=== PATIENT | male | born 1955 | race Caucasian/White ===

== ENCOUNTER 2018-11-06 03:21 | Inpatient (IN) | payer MEDICARE, MEDICAID ==
[~2018-11-06] VITALS: Ht 167.6 cm; Wt 79.0 kg
[~2018-11-06 03:21] MED LIST: APIX2.5T PO; ATOR20TA86 PO; DOCU250C91 PO; FOLI1CAP2 PO; INSU100I26 SQ; PANT20TA PO; PRED5 PO; SOTA120T PO; TACR1 PO; TAMS0.4C32 PO
[2018-11-06] MEDS ORDERED: LORazepam 2 MG/ML VIAL IVP ONE ×2 (03:30→03:45)
[2018-11-06] MEDS ORDERED: INSULIN REGULAR, HUMAN 100 UNITS/ML IVP ONE (03:45)
[2018-11-06 03:50] LABS: GLUCOSE,POINT OF CARE 565 MG/DL (70-110)
[2018-11-06 03:53] LABS: ABG A-A DIFF O2 285.9 mmHg (10-20.0); ABG CARBOXYHEMOGLOBIN 0.3 % (0.0-1.5); ABG METHEMOGLOBIN 0.4 % (0.0-1.5); ABG OXYGEN SATURATION 99.4 % (95.0-98.0); ABG OXYHEMOGLOBIN 98.7 % (94.0-100.0); ABG PCO2 63 mmHg (35-45); PO2, ARTERIAL BG 364.2 mmHg (79.0-87.0); SOURCE, BLOOD GAS ARTERIAL; TEMPERATURE, FAHRENHEIT, BG 98.6 FAHREN (96.0-98.6)
[2018-11-06 03:54] LABS: ABG HCO3 6.4 mmol/L (22.0-26.0); ABG PH 6.772 (7.35-7.450); O2 DEVICE,BLOOD GAS NON REBREATHER (ROOM AIR); SITE, BLOOD GAS RT RADIAL
[2018-11-06] MEDS ORDERED: LABETALOL HCL 5 MG/ML 20 ML VIAL IVP ONE (04:00)
[2018-11-06] MEDS ORDERED: RAPID SEQUENCE KIT [RSI] 1 EACH KIT ONE (04:01)
[2018-11-06] MEDS ORDERED: ROCURONIUM BROMIDE 10 MG/ML 5 ML VIAL ONE (04:01)
[2018-11-06 04:12] LABS: BASOPHILS % (AUTO) 0.6 % (0.0-2.0); EOSINOPHILS % (AUTO) 0.9 % (1.0-6.0); HEMATOCRIT 40.8 % (41-53); HEMOGLOBIN 12.1 g/dL (13.5-17.5); LYMPHOCYTES # (AUTO) 6.7 K/uL (1.0-4.8); LYMPHOCYTES % (AUTO) 41.7 % (22.0-44.0); MEAN CORPUSCULAR HEMOGLOBIN 27.9 pg (26.0-34.0); MEAN CORPUSCULAR HGB CONC 29.8 G/dL (31.0-37.0); MEAN CORPUSCULAR VOLUME 94 fL (80-100); MONOCYTES # (AUTO) 1.2 K/uL (0.1-1.0); MONOCYTES % (AUTO) 7.2 % (2.0-9.0); NEUTROPHILS # (AUTO) 7.9 K/uL (1.8-7.7); NEUTROPHILS % (AUTO) 49.6 % (40.0-70.0); PLATELET COUNT (AUTO) 178 K/uL (150-450); RED BLOOD CELL COUNT(AUTO) 4.35 MIL/uL (4.50-5.90)
[2018-11-06 04:19] LABS: PROTHROMBIN TIME 10.8 SEC (9.4-11.6)
[2018-11-06] MEDS ORDERED: PROPOFOL 1000 MG/ISO-OSM 100 ML IV ONE ×2 (04:35→12:25)
[2018-11-06] MEDS ORDERED: PROPOFOL 1000 MG/ISO-OSM 100 ML IV PRN (04:37)
[2018-11-06 04:45] LABS: BILIRUBIN,TOTAL 0.2 mg/dL (0.1-1.0); CALCIUM, TOTAL 9.3 mg/dL (8.8-10.5); CREATININE 4.11 mg/dL (0.60-1.30); MAGNESIUM 2.5 mg/dL (1.80-2.40); POTASSIUM 4.6 mmol/L (3.5-5.1); TOTAL PROTEIN, SERUM 5.6 g/dL (6.4-8.2)
[2018-11-06] MEDS ORDERED: FURO20 PO (04:45)
[2018-11-06] MEDS ORDERED: SIMV-260 PO (04:45)
[2018-11-06] MEDS ORDERED: ESOM20CA31 PO (04:45)
[2018-11-06] MEDS ORDERED: METO50 PO (04:45)
[2018-11-06] MEDS ORDERED: INSU100V SQ (04:45)
[2018-11-06] MEDS ORDERED: LOSA50TA64 PO (04:45)
[2018-11-06] MEDS ORDERED: MYCO360T3 PO (04:45)
[2018-11-06] MEDS ORDERED: OMEP20 PO (04:45)
[2018-11-06 04:53] LABS: LACTIC ACID 10.9 mmol/L (0.4-2.0)
[2018-11-06] MEDS ORDERED: PIPERACILLIN/TAZO 3.375 GM/D5W 50 ML IV ONE (05:00)
[2018-11-06] MEDS ORDERED: SODIUM CHLORIDE 0.9% 1,000 ML IV ONE (05:00)
[2018-11-06] MEDS ORDERED: INSULIN REGULAR, HUMAN 100 UNITS in SODIUM CHLORIDE 0.9% 99 ML IV PRN ×4 (05:15→05:23)
[2018-11-06] MEDS ORDERED: POTASSIUM CHL 20 MEQ/0.45% NS 1,000 ML IV PRN (05:23)
[2018-11-06] MEDS ORDERED: POTASSIUM CHLORIDE 40 MEQ in SODIUM CHLORIDE 0.45% 1,000 ML IV PRN (05:23)
[2018-11-06] MEDS ORDERED: SODIUM CHLORIDE 0.9% 1,000 ML IV SCH (05:23)
[2018-11-06] MEDS ORDERED: SODIUM CHLORIDE 0.45% 1,000 ML IV PRN (05:23)
[2018-11-06] MEDS ORDERED: DEXTROSE 5%-0.45% SODIUM CHL 1,000 ML IV PRN (05:23)
[2018-11-06 05:30] LABS: GLUCOSE,POINT OF CARE 457 MG/DL (70-110)
[2018-11-06] MEDS ORDERED: DEXTROSE 50%-WATER 25 GM/50 ML SYRINGE IVP PRN ×2 (05:30→10:15)
[2018-11-06] MEDS ORDERED: INSULIN REGULAR, HUMAN 100 UNITS/ML IVP PRN (05:30)
[2018-11-06 05:33] LABS: BILIRUBIN,URINE NEGATIVE (NEGATIVE); GLUCOSE, URINE (UA) >=1000 mg/dL (NEGATIVE); KETONES,URINE NEGATIVE (NEGATIVE); LEUKOCYTE ESTERASE ,URINE NEGATIVE (NEGATIVE); NITRATE,URINE NEGATIVE (NEGATIVE); PH,URINE 5.5 (5.0-8.0); PROTEIN,URINE SEE CONFIRM (NEGATIVE); UROBILINOGEN,URINE 0.2 mg/dL (<=1.0)
[2018-11-06 05:38] LABS: AMPHET/METH SCREEN,URINE NEGATIVE (NEGATIVE); BARBITURATE SCREEN, URINE NEGATIVE (NEGATIVE); BENZODIAZEPINES SCREEN,URINE NEGATIVE (NEGATIVE); CANNABINOID SCREEN,URINE NEGATIVE (NEGATIVE); COCAINE SCREEN,URINE NEGATIVE (NEGATIVE); METHADONE SCREEN, URINE NEGATIVE (NEGATIVE); OPIATE SCREEN,URINE NEGATIVE (NEGATIVE)
[2018-11-06 05:40] LABS: APPEARANCE,URINE SLIGHTLY CLOUDY (CLEAR); OCCULT BLOOD,URINE MODERATE (NEGATIVE)
[2018-11-06 05:41] LABS: BACTERIA,URINE Moderate /HPF (None Seen); SULFOSALICYLIC ACID,URINE 3+ (Negative); WBC,URINE 0-2 /HPF (0-5)
[2018-11-06 05:44] LABS: PHENCYCLIDINE SCREEN,URINE NEGATIVE (NEGATIVE)
[2018-11-06 05:47] LABS: ABG A-A DIFF O2 615.2 mmHg (10-20.0); ABG BASE EXCESS -12.4 mmol/L (-2.0-3.0); ABG CARBOXYHEMOGLOBIN 0.3 % (0.0-1.5); ABG HCO3 15.1 mmol/L (22.0-26.0); ABG METHEMOGLOBIN 0.3 % (0.0-1.5); ABG OXYGEN CONTENT 13.8 mL/dL (15.0-23.0); ABG OXYHEMOGLOBIN 84.3 % (94.0-100.0); ABG PCO2 40 mmHg (35-45); ABG TOTAL HEMOGLOBIN 11.6 G/dL (12.0-18.0); PO2, ARTERIAL BG 57.8 mmHg (79.0-87.0); SOURCE, BLOOD GAS ARTERIAL; TEMPERATURE, FAHRENHEIT, BG 98.6 FAHREN (96.0-98.6)
[2018-11-06 05:49] LABS: ABG OXYGEN SATURATION 84.8 % (95.0-98.0); ABG PH 7.207 (7.35-7.450); O2 DEVICE,BLOOD GAS VENTILATOR (ROOM AIR); PEEP,BG 5 cm H2O; SITE, BLOOD GAS RT RADIAL; VT, ABG 500 ml
[2018-11-06 06:59] LABS: GLUCOSE,POINT OF CARE 370 MG/DL (70-110)
[2018-11-06 07:00] LABS: CALCIUM, TOTAL 8.5 mg/dL (8.8-10.5); CREATININE 3.83 mg/dL (0.60-1.30); POTASSIUM 5.1 mmol/L (3.5-5.1)
[2018-11-06] MEDS ORDERED: ACETAMINOPHEN 325 MG TABLET PO PRN ×2 (08:00→10:15)
[2018-11-06] MEDS ORDERED: 0.9% SODIUM CHLORIDE 10 ML SYRINGE IVP PRN (08:00)
[2018-11-06 08:04] LABS: GLUCOSE,POINT OF CARE 298 MG/DL (70-110)
[2018-11-06 09:20] LABS: ABG A-A DIFF O2 203.5 mmHg (10-20.0); ABG BASE EXCESS -9.5 mmol/L (-2.0-3.0); ABG CARBOXYHEMOGLOBIN 0.2 % (0.0-1.5); ABG HCO3 17.6 mmol/L (22.0-26.0); ABG METHEMOGLOBIN 0.3 % (0.0-1.5); ABG OXYGEN CONTENT 15.8 mL/dL (15.0-23.0); ABG OXYGEN SATURATION 99.4 % (95.0-98.0); ABG OXYHEMOGLOBIN 98.9 % (94.0-100.0); ABG PCO2 29 mmHg (35-45); ABG PH 7.356 (7.35-7.450); ABG TOTAL HEMOGLOBIN 10.4 G/dL (12.0-18.0); O2 DEVICE,BLOOD GAS VENTILATOR (ROOM AIR); PO2, ARTERIAL BG 483.4 mmHg (79.0-87.0); SITE, BLOOD GAS RT RADIAL; SOURCE, BLOOD GAS ARTERIAL; TEMPERATURE, FAHRENHEIT, BG 96.2 FAHREN (96.0-98.6)
[2018-11-06 09:21] LABS: PEEP,BG 5 cm H2O; VT, ABG 500 ml
[2018-11-06] MEDS ORDERED: SODIUM CHLORIDE 0.9% 250 ML IV ONE (09:55)
[2018-11-06] MEDS ORDERED: LORazepam 2 MG/ML VIAL IM PRN (10:15)
[2018-11-06] MEDS ORDERED: ONDANSETRON HCL 4 MG/2 ML VIAL IVP PRN (10:15)
[2018-11-06] MEDS ORDERED: ZOLPIDEM TARTRATE 5 MG TABLET PO PRN (10:15)
[2018-11-06] MEDS ORDERED: MORPHINE SULFATE 4 MG/ML SYRINGE IVP PRN (10:15)
[2018-11-06] MEDS ORDERED: MAGNESIUM HYDROXIDE SUSPENSION 30 ML UDCUP PO PRN (10:15)
[2018-11-06] MEDS ORDERED: BISACODYL 10 MG RECTAL RECTAL SUPPOSITORY PR PRN (10:15)
[2018-11-06] MEDS: LevETIRAcetam 500 MG in DEXTROSE 5%-WATER 100 ML IV SCH ×2 (11:25→23:00)
[2018-11-06 11:52] LABS: CALCIUM, TOTAL 8.4 mg/dL (8.8-10.5); CREATININE 3.65 mg/dL (0.60-1.30); MAGNESIUM 2.6 mg/dL (1.80-2.40); PHOSPHORUS 4.6 mg/dL (2.5-4.9); POTASSIUM 4.3 mmol/L (3.5-5.1)
[2018-11-06 12:00] VITALS: BP 141/86
[2018-11-06] MEDS: PredniSONE 5 MG TABLET PO SCH (13:52)
[2018-11-06] MEDS: MYCOPHENOLATE SODIUM 180 MG DR TABLET PO SCH ×2 (13:52→20:59)
[2018-11-06] MEDS: SODIUM CHLORIDE 0.45% 1,000 ML IV SCH ×2 (13:53→20:59)
[2018-11-06 15:09] LABS: GLUCOSE,POINT OF CARE 163 MG/DL (70-110)
[2018-11-06 15:09] LABS: GLUCOSE,POINT OF CARE 123 MG/DL (70-110)
[2018-11-06 15:19] LABS: GLUCOSE,POINT OF CARE 144 MG/DL (70-110)
[2018-11-06 16:00] VITALS: BP 154/82
[2018-11-06] MEDS ORDERED: ROCURONIUM BROMIDE 10 MG/ML 5 ML VIAL IV ONE (16:07)
[2018-11-06] MEDS ORDERED: ETOMIDATE 2 MG/ML 10 ML VIAL IV ONE (16:07)
[2018-11-06] MEDS: HEPARIN SODIUM,PORCINE 5,000 UNITS/ML VIAL SQ SCH ×2 (16:14→23:05)
[2018-11-06 18:34] LABS: GLUCOSE,POINT OF CARE 119 MG/DL (70-110)
[2018-11-06] MEDS: PROPOFOL 1000 MG/ISO-OSM 100 ML IV PRN ×2 (18:43→23:06)
[2018-11-06] MEDS: HydrALAZINE HCL 20 MG/ML VIAL IVP PRN (18:57)
[2018-11-06 19:12] LABS: APPEARANCE,URINE TURBID (CLEAR); BILIRUBIN,URINE NEGATIVE (NEGATIVE); CREATININE,URINE RANDOM 157.6 mg/dL (30.0-125.0); GLUCOSE, URINE (UA) 500 mg/dL (NEGATIVE); KETONES,URINE NEGATIVE (NEGATIVE); LEUKOCYTE ESTERASE ,URINE NEGATIVE (NEGATIVE); NITRATE,URINE NEGATIVE (NEGATIVE); OCCULT BLOOD,URINE LARGE (NEGATIVE); PROTEIN,URINE SEE CONFIRM (NEGATIVE); SODIUM,URINE RANDOM 14 mmol/l (20-110); UREA NITROGEN,URINE RANDOM 501 mg/dL (350-1000); UROBILINOGEN,URINE 0.2 mg/dL (<=1.0)
[2018-11-06 19:25] LABS: BACTERIA,URINE Few /HPF (None Seen); SQUAMOUS EPITHELIAL CELL,UR Few /LPF (None Seen); WBC,URINE 0-2 /HPF (0-5)
[2018-11-06 19:26] LABS: AMORPHOUS SEDIMENT,UR Few /LPF (None Seen)
[2018-11-06 20:00] VITALS: BP 172/84
[2018-11-06] MEDS: DOCUSATE SODIUM 100 MG CAPSULE PO SCH (20:58)
[2018-11-06] MEDS: TAMSULOSIN HCL 0.4 MG CAPSULE PO SCH (20:58)
[2018-11-06] MEDS: INSULIN LISPRO 100 UNITS/ML SQ PRN (23:56)
[2018-11-07] VITALS: BP 154/72
[2018-11-07 00:09] LABS: GLUCOSE,POINT OF CARE 238 MG/DL (70-110)
[2018-11-07] MEDS: HydrALAZINE HCL 20 MG/ML VIAL IVP PRN ×3 (02:03→19:51)
[2018-11-07] MEDS: SODIUM CHLORIDE 0.45% 1,000 ML IV SCH ×2 (03:58→10:20)
[2018-11-07] MEDS: PROPOFOL 1000 MG/ISO-OSM 100 ML IV PRN (03:58)
[2018-11-07 04:00] VITALS: BP 150/73
[2018-11-07 05:14] LABS: GLUCOSE,POINT OF CARE 194 MG/DL (70-110)
[2018-11-07 05:33] LABS: BASOPHILS % (AUTO) 0.4 % (0.0-2.0); EOSINOPHILS % (AUTO) 0.3 % (1.0-6.0); HEMATOCRIT 31.1 % (41-53); HEMOGLOBIN 10.3 g/dL (13.5-17.5); LYMPHOCYTES # (AUTO) 1.1 K/uL (1.0-4.8); LYMPHOCYTES % (AUTO) 12.2 % (22.0-44.0); MEAN CORPUSCULAR HEMOGLOBIN 28.2 pg (26.0-34.0); MEAN CORPUSCULAR HGB CONC 33.1 G/dL (31.0-37.0); MEAN CORPUSCULAR VOLUME 85 fL (80-100); MONOCYTES # (AUTO) 0.5 K/uL (0.1-1.0); NEUTROPHILS # (AUTO) 7.3 K/uL (1.8-7.7); NEUTROPHILS % (AUTO) 81.1 % (40.0-70.0); PLATELET COUNT (AUTO) 127 K/uL (150-450); RED BLOOD CELL COUNT(AUTO) 3.65 MIL/uL (4.50-5.90); RED CELL DISTRIBUTION WIDTH 15.7 % (11.5-14.5)
[2018-11-07] MEDS: INSULIN LISPRO 100 UNITS/ML SQ PRN ×4 (06:49→23:59)
[2018-11-07 07:44] LABS: PHOSPHORUS 5.2 mg/dL (2.5-4.9)
[2018-11-07 08:00] VITALS: BP 136/58
[2018-11-07 08:07] LABS: CREATININE 3.75 mg/dL (0.60-1.30); MAGNESIUM 2.3 mg/dL (1.80-2.40); POTASSIUM 4.8 mmol/L (3.5-5.1)
[2018-11-07] MEDS ORDERED: LORazepam 2 MG/ML VIAL IVP PRN (08:30)
[2018-11-07] MEDS ORDERED: LOSARTAN POTASSIUM 50 MG TABLET PO SCH (09:00)
[2018-11-07 10:13] LABS: ABG BASE EXCESS -13.6 mmol/L (-2.0-3.0); ABG CARBOXYHEMOGLOBIN 0.3 % (0.0-1.5); ABG METHEMOGLOBIN 0.3 % (0.0-1.5); ABG OXYGEN CONTENT 15.3 mL/dL (15.0-23.0); ABG OXYGEN SATURATION 98.7 % (95.0-98.0); ABG OXYHEMOGLOBIN 98.1 % (94.0-100.0); ABG PCO2 25 mmHg (35-45); ABG PH 7.318 (7.35-7.450); ABG TOTAL HEMOGLOBIN 10.9 G/dL (12.0-18.0); PO2, ARTERIAL BG 147.7 mmHg (79.0-87.0); SOURCE, BLOOD GAS ARTERIAL; TEMPERATURE, FAHRENHEIT, BG 98.4 FAHREN (96.0-98.6)
[2018-11-07] MEDS: DOCUSATE SODIUM 100 MG CAPSULE PO SCH ×2 (10:18→21:00)
[2018-11-07] MEDS: VITAMIN B COMP/VIT C/FOLIC ACID CAPSULE PO SCH (10:18)
[2018-11-07] MEDS: HEPARIN SODIUM,PORCINE 5,000 UNITS/ML VIAL SQ SCH ×3 (10:18→23:46)
[2018-11-07] MEDS: SIMVASTATIN 20 MG TABLET PO SCH (10:19)
[2018-11-07] MEDS: PredniSONE 5 MG TABLET PO SCH (10:19)
[2018-11-07] MEDS: METOPROLOL TARTRATE 50 MG TABLET PO SCH (10:19)
[2018-11-07] MEDS: PANTOPRAZOLE SODIUM 40 MG DR TABLET PO SCH (10:19)
[2018-11-07] MEDS: MYCOPHENOLATE SODIUM 180 MG DR TABLET PO SCH ×2 (10:19→21:00)
[2018-11-07] MEDS: LevETIRAcetam 500 MG in DEXTROSE 5%-WATER 100 ML IV SCH (10:21)
[2018-11-07 10:27] LABS: O2 DEVICE,BLOOD GAS VENTILATOR (ROOM AIR); PEEP,BG 5 cm H2O; PRESSURE SUPPORT, BG 8 cm H2O; SITE, BLOOD GAS RT RADIAL; VENT MODE, BG SPONTANEOUS (ROOM AIR)
[2018-11-07] MEDS ORDERED: SODIUM BICARBONATE [ADULT] 8.4% 50 MEQ/50 ML SYRINGE IVP ONE (10:45)
[2018-11-07] MEDS ORDERED: SODIUM CHLORIDE 0.9% 250 ML IV ONE (10:45)
[2018-11-07 12:00] VITALS: BP 136/58
[2018-11-07 15:29] LABS: GLUCOSE,POINT OF CARE 238 MG/DL (70-110)
[2018-11-07] MEDS: SODIUM BICARBONATE 75 MEQ in SODIUM CHLORIDE 0.45% 1,000 ML IV SCH (16:23)
[2018-11-07 18:38] LABS: GLUCOSE,POINT OF CARE 185 MG/DL (70-110)
[2018-11-07 20:00] VITALS: BP 173/87
[2018-11-07] MEDS: TACROLIMUS ANHYDROUS 1 MG CAPSULE PO SCH (21:00)
[2018-11-07] MEDS: TAMSULOSIN HCL 0.4 MG CAPSULE PO SCH (21:00)
[2018-11-07] MEDS: INSULIN GLARGINE,HUM.REC.ANLOG 100 UNITS/ML SQ SCH (21:02)
[2018-11-07 21:25] LABS: GLUCOSE,POINT OF CARE 152 MG/DL (70-110)
[2018-11-08] VITALS (7 sets, daily range): BP systolic 81–185; BP diastolic 71–99
[2018-11-08 00:38] LABS: GLUCOSE,POINT OF CARE 136 MG/DL (70-110)
[2018-11-08] MEDS: HydrALAZINE HCL 20 MG/ML VIAL IVP PRN ×2 (01:53→19:01)
[2018-11-08] MEDS: SODIUM BICARBONATE 75 MEQ in SODIUM CHLORIDE 0.45% 1,000 ML IV SCH ×2 (06:03→22:46)
[2018-11-08] MEDS: INSULIN LISPRO 100 UNITS/ML SQ PRN ×4 (06:08→22:18)
[2018-11-08 06:15] LABS: GLUCOSE,POINT OF CARE 168 MG/DL (70-110)
[2018-11-08] MEDS: HEPARIN SODIUM,PORCINE 5,000 UNITS/ML VIAL SQ SCH ×2 (08:42→16:00)
[2018-11-08 08:51] LABS: BASOPHILS % (AUTO) 0.6 % (0.0-2.0); EOSINOPHILS % (AUTO) 0.5 % (1.0-6.0); HEMATOCRIT 31.7 % (41-53); HEMOGLOBIN 10.5 g/dL (13.5-17.5); LYMPHOCYTES % (AUTO) 13.9 % (22.0-44.0); MEAN CORPUSCULAR HGB CONC 33.2 G/dL (31.0-37.0); MEAN CORPUSCULAR VOLUME 84 fL (80-100); MONOCYTES # (AUTO) 0.6 K/uL (0.1-1.0); MONOCYTES % (AUTO) 8.8 % (2.0-9.0); NEUTROPHILS # (AUTO) 5.6 K/uL (1.8-7.7); NEUTROPHILS % (AUTO) 76.2 % (40.0-70.0); PLATELET COUNT (AUTO) 119 K/uL (150-450); RED BLOOD CELL COUNT(AUTO) 3.77 MIL/uL (4.50-5.90); RED CELL DISTRIBUTION WIDTH 15.8 % (11.5-14.5)
[2018-11-08 09:13] LABS: CALCIUM, TOTAL 7.8 mg/dL (8.8-10.5); CREATININE 3.97 mg/dL (0.60-1.30); MAGNESIUM 2.2 mg/dL (1.80-2.40); POTASSIUM 4.3 mmol/L (3.5-5.1)
[2018-11-08 09:25] LABS: PHOSPHORUS 5.6 mg/dL (2.5-4.9)
[2018-11-08] MEDS: PANTOPRAZOLE SODIUM 40 MG DR TABLET PO SCH (10:00)
[2018-11-08] MEDS: VITAMIN B COMP/VIT C/FOLIC ACID CAPSULE PO SCH (10:00)
[2018-11-08] MEDS: PredniSONE 5 MG TABLET PO SCH (10:00)
[2018-11-08] MEDS: MYCOPHENOLATE SODIUM 180 MG DR TABLET PO SCH ×2 (10:01→22:02)
[2018-11-08] MEDS: TACROLIMUS ANHYDROUS 1 MG CAPSULE PO SCH ×2 (10:01→22:04)
[2018-11-08] MEDS: SIMVASTATIN 20 MG TABLET PO SCH (10:01)
[2018-11-08] MEDS: DOCUSATE SODIUM 100 MG CAPSULE PO SCH ×2 (10:01→21:00)
[2018-11-08] MEDS: METOPROLOL TARTRATE 50 MG TABLET PO SCH (10:02)
[2018-11-08] MEDS: INSULIN GLARGINE,HUM.REC.ANLOG 100 UNITS/ML SQ SCH ×2 (10:10→22:17)
[2018-11-08] MEDS: ASPIRIN 81 MG EC TABLET PO SCH (14:26)
[2018-11-08 14:34] LABS: GLUCOSE,POINT OF CARE 191 MG/DL (70-110)
[2018-11-08 19:50] LABS: CREATININE 3.91 mg/dL (0.60-1.30)
[2018-11-08] MEDS: TAMSULOSIN HCL 0.4 MG CAPSULE PO SCH (22:02)
[2018-11-08 23:39] LABS: GLUCOMETER DEV NAME(LOC) 5S.1; GLUCOSE,POINT OF CARE 323 MG/DL (70-110)
[2018-11-09] MEDS: HydrALAZINE HCL 20 MG/ML VIAL IVP PRN ×2 (01:07→09:25)
[2018-11-09 04:52] VITALS: BP 180/72
[2018-11-09] MEDS: INSULIN LISPRO 100 UNITS/ML SQ PRN ×3 (06:02→20:34)
[2018-11-09 06:10] LABS: GLUCOSE,POINT OF CARE 223 MG/DL (70-110)
[2018-11-09 06:54] LABS: GLUCOMETER DEV NAME(LOC) 5S.1; GLUCOSE,POINT OF CARE 235 MG/DL (70-110)
[2018-11-09 07:12] VITALS: BP 174/86
[2018-11-09 07:26] LABS: CALCIUM, TOTAL 7.6 mg/dL (8.8-10.5); CREATININE 4.06 mg/dL (0.60-1.30); MAGNESIUM 2.4 mg/dL (1.80-2.40); PHOSPHORUS 5.2 mg/dL (2.5-4.9); POTASSIUM 3.7 mmol/L (3.5-5.1)
[2018-11-09] MEDS: TACROLIMUS ANHYDROUS 1 MG CAPSULE PO SCH ×2 (08:36→20:29)
[2018-11-09] MEDS: ASPIRIN 81 MG EC TABLET PO SCH (08:36)
[2018-11-09] MEDS: DOCUSATE SODIUM 100 MG CAPSULE PO SCH ×2 (08:36→20:28)
[2018-11-09] MEDS: MYCOPHENOLATE SODIUM 180 MG DR TABLET PO SCH ×2 (08:36→20:28)
[2018-11-09] MEDS: PANTOPRAZOLE SODIUM 40 MG DR TABLET PO SCH (08:37)
[2018-11-09] MEDS: SIMVASTATIN 20 MG TABLET PO SCH (08:37)
[2018-11-09] MEDS: METOPROLOL TARTRATE 50 MG TABLET PO SCH (08:37)
[2018-11-09] MEDS: VITAMIN B COMP/VIT C/FOLIC ACID CAPSULE PO SCH (08:37)
[2018-11-09] MEDS: INSULIN GLARGINE,HUM.REC.ANLOG 100 UNITS/ML SQ SCH ×2 (08:43→20:31)
[2018-11-09] MEDS: HEPARIN SODIUM,PORCINE 5,000 UNITS/ML VIAL SQ SCH ×3 (08:44→20:27)
[2018-11-09] MEDS: PredniSONE 5 MG TABLET PO SCH (09:25)
[2018-11-09 10:39] LABS: GLUCOMETER DEV NAME(LOC) 5S.2; GLUCOSE,POINT OF CARE 160 MG/DL (70-110)
[2018-11-09 11:00] VITALS: BP 150/78
[2018-11-09] MEDS: AmLODIPine BESYLATE 10 MG TABLET PO SCH (11:49)
[2018-11-09] MEDS: SODIUM BICARBONATE 75 MEQ in SODIUM CHLORIDE 0.45% 1,000 ML IV SCH (14:36)
[2018-11-09 15:15] VITALS: BP 145/70
[2018-11-09 15:19] LABS: GLUCOMETER DEV NAME(LOC) 5S.2; GLUCOSE,POINT OF CARE 222 MG/DL (70-110)
[2018-11-09 18:22] LABS: CREATININE 3.99 mg/dL (0.60-1.30)
[2018-11-09 19:39] VITALS: BP 159/81
[2018-11-09] MEDS: TAMSULOSIN HCL 0.4 MG CAPSULE PO SCH (20:28)
[2018-11-09] MEDS: HYDROCODONE/ACETAMINOPHEN 5-325 MG TABLET PO PRN (20:29)
[2018-11-09 23:30] VITALS: BP 173/81
[2018-11-10] MEDS ORDERED: DIGOXIN 250 MCG/ML 2 ML AMP ONE (01:15)
[2018-11-10] MEDS ORDERED: DIGOXIN 250 MCG/ML 2 ML AMP IVP ONE (01:15)
[2018-11-10] MEDS ORDERED: METOPROLOL TARTRATE 25 MG TABLET PO ONE (02:00)
[2018-11-10 04:23] VITALS: BP 126/72
[2018-11-10] MEDS: SODIUM BICARBONATE 75 MEQ in SODIUM CHLORIDE 0.45% 1,000 ML IV SCH ×2 (05:39→20:45)
[2018-11-10] MEDS: INSULIN LISPRO 100 UNITS/ML SQ PRN ×4 (05:48→20:51)
[2018-11-10 07:18] VITALS: BP 135/85
[2018-11-10] MEDS: VITAMIN B COMP/VIT C/FOLIC ACID CAPSULE PO SCH (08:09)
[2018-11-10] MEDS: ASPIRIN 81 MG EC TABLET PO SCH (08:09)
[2018-11-10] MEDS: PredniSONE 5 MG TABLET PO SCH (08:09)
[2018-11-10] MEDS: AmLODIPine BESYLATE 10 MG TABLET PO SCH (08:09)
[2018-11-10] MEDS: PANTOPRAZOLE SODIUM 40 MG DR TABLET PO SCH (08:09)
[2018-11-10] MEDS: MYCOPHENOLATE SODIUM 180 MG DR TABLET PO SCH ×2 (08:09→20:45)
[2018-11-10] MEDS: DOCUSATE SODIUM 100 MG CAPSULE PO SCH ×2 (08:10→20:45)
[2018-11-10] MEDS: SIMVASTATIN 20 MG TABLET PO SCH (08:10)
[2018-11-10] MEDS: HEPARIN SODIUM,PORCINE 5,000 UNITS/ML VIAL SQ SCH ×2 (08:10→20:47)
[2018-11-10] MEDS: TACROLIMUS ANHYDROUS 1 MG CAPSULE PO SCH ×2 (08:10→20:46)
[2018-11-10 08:11] LABS: CALCIUM, TOTAL 7.8 mg/dL (8.8-10.5); CREATININE 3.98 mg/dL (0.60-1.30); MAGNESIUM 2.2 mg/dL (1.80-2.40); PHOSPHORUS 4.1 mg/dL (2.5-4.9); POTASSIUM 3.4 mmol/L (3.5-5.1)
[2018-11-10] MEDS: INSULIN GLARGINE,HUM.REC.ANLOG 100 UNITS/ML SQ SCH ×2 (08:13→20:51)
[2018-11-10] MEDS ORDERED: METOPROLOL TARTRATE 25 MG TABLET PO SCH (09:00)
[2018-11-10] MEDS ORDERED: POTASSIUM CHLORIDE 20 MEQ ER TABLET PO ONE (10:45)
[2018-11-10 11:05] LABS: GLUCOMETER DEV NAME(LOC) 5S.2; GLUCOSE,POINT OF CARE 317 MG/DL (70-110)
[2018-11-10 11:05] LABS: GLUCOMETER DEV NAME(LOC) 5S.2; GLUCOSE,POINT OF CARE 188 MG/DL (70-110)
[2018-11-10 11:09] LABS: GLUCOMETER DEV NAME(LOC) 5S.1; GLUCOSE,POINT OF CARE 266 MG/DL (70-110)
[2018-11-10 11:10] LABS: GLUCOMETER DEV NAME(LOC) 5S.1; GLUCOSE,POINT OF CARE 162 MG/DL (70-110)
[2018-11-10 11:47] VITALS: BP 162/83
[2018-11-10 11:49] LABS: THYROID STIMULATING HORMONE 1.64 uIU/mL (0.36-3.74)
[2018-11-10] MEDS: SOTALOL HCL 80 MG TABLET PO SCH ×2 (12:25→20:45)
[2018-11-10 13:29] LABS: GLUCOMETER DEV NAME(LOC) 5S.2; GLUCOSE,POINT OF CARE 184 MG/DL (70-110)
[2018-11-10] MEDS ORDERED: POTASSIUM CHLORIDE 10 MEQ ER TABLET PO ONE (14:00)
[2018-11-10 15:47] VITALS: BP 153/77
[2018-11-10] MEDS: APIXABAN 2.5 MG TABLET PO SCH (20:46)
[2018-11-10] MEDS: TAMSULOSIN HCL 0.4 MG CAPSULE PO SCH (20:46)
[2018-11-10] MEDS: HYDROCODONE/ACETAMINOPHEN 5-325 MG TABLET PO PRN (20:54)
[2018-11-11] VITALS (8 sets, daily range): BP systolic 125–189; BP diastolic 55–92
[2018-11-11 01:34] LABS: GLUCOMETER DEV NAME(LOC) 5S.1; GLUCOSE,POINT OF CARE 202 MG/DL (70-110)
[2018-11-11 01:34] LABS: GLUCOMETER DEV NAME(LOC) 5S.1; GLUCOSE,POINT OF CARE 145 MG/DL (70-110)
[2018-11-11] MEDS: HydrALAZINE HCL 20 MG/ML VIAL IVP PRN (04:33)
[2018-11-11] MEDS: HYDROCODONE/ACETAMINOPHEN 5-325 MG TABLET PO PRN (05:20)
[2018-11-11 07:08] LABS: BASOPHILS % (AUTO) 0.6 % (0.0-2.0); EOSINOPHILS % (AUTO) 3.5 % (1.0-6.0); LYMPHOCYTES # (AUTO) 0.9 K/uL (1.0-4.8); LYMPHOCYTES % (AUTO) 18.4 % (22.0-44.0); MEAN CORPUSCULAR HGB CONC 33.3 G/dL (31.0-37.0); MEAN CORPUSCULAR VOLUME 84 fL (80-100); MONOCYTES # (AUTO) 0.4 K/uL (0.1-1.0); MONOCYTES % (AUTO) 8.4 % (2.0-9.0); NEUTROPHILS # (AUTO) 3.5 K/uL (1.8-7.7); NEUTROPHILS % (AUTO) 69.1 % (40.0-70.0); PLATELET COUNT (AUTO) 136 K/uL (150-450); RED BLOOD CELL COUNT(AUTO) 3.21 MIL/uL (4.50-5.90); RED CELL DISTRIBUTION WIDTH 15.3 % (11.5-14.5)
[2018-11-11 07:35] LABS: ALBUMIN 1.3 g/dL (3.4-5.0); BILIRUBIN,TOTAL 0.1 mg/dL (0.1-1.0); CALCIUM, TOTAL 7.4 mg/dL (8.8-10.5); CREATININE 3.76 mg/dL (0.60-1.30); MAGNESIUM 2.2 mg/dL (1.80-2.40); TOTAL PROTEIN, SERUM 3.9 g/dL (6.4-8.2)
[2018-11-11] MEDS: VITAMIN B COMP/VIT C/FOLIC ACID CAPSULE PO SCH (08:44)
[2018-11-11] MEDS: PANTOPRAZOLE SODIUM 40 MG DR TABLET PO SCH (08:44)
[2018-11-11] MEDS: HEPARIN SODIUM,PORCINE 5,000 UNITS/ML VIAL SQ SCH ×2 (08:44→20:31)
[2018-11-11] MEDS: MYCOPHENOLATE SODIUM 180 MG DR TABLET PO SCH ×2 (08:44→20:31)
[2018-11-11] MEDS: TACROLIMUS ANHYDROUS 1 MG CAPSULE PO SCH ×2 (08:44→20:36)
[2018-11-11] MEDS: DOCUSATE SODIUM 100 MG CAPSULE PO SCH ×2 (08:44→20:34)
[2018-11-11] MEDS: SOTALOL HCL 80 MG TABLET PO SCH (08:44)
[2018-11-11] MEDS: ASPIRIN 81 MG EC TABLET PO SCH (08:44)
[2018-11-11] MEDS: AmLODIPine BESYLATE 10 MG TABLET PO SCH (08:44)
[2018-11-11] MEDS: PredniSONE 5 MG TABLET PO SCH (08:44)
[2018-11-11] MEDS: SIMVASTATIN 20 MG TABLET PO SCH (08:44)
[2018-11-11] MEDS: APIXABAN 2.5 MG TABLET PO SCH ×2 (08:44→20:34)
[2018-11-11] MEDS: INSULIN GLARGINE,HUM.REC.ANLOG 100 UNITS/ML SQ SCH ×2 (08:53→20:33)
[2018-11-11] MEDS: INSULIN LISPRO 100 UNITS/ML SQ PRN ×3 (12:14→20:34)
[2018-11-11 20:19] LABS: GLUCOMETER DEV NAME(LOC) 5S.2; GLUCOSE,POINT OF CARE 108 MG/DL (70-110)
[2018-11-11 20:19] LABS: GLUCOMETER DEV NAME(LOC) 5S.2; GLUCOSE,POINT OF CARE 186 MG/DL (70-110)
[2018-11-11 20:19] LABS: GLUCOMETER DEV NAME(LOC) 5S.2; GLUCOSE,POINT OF CARE 94 MG/DL (70-110)
[2018-11-11] MEDS: TAMSULOSIN HCL 0.4 MG CAPSULE PO SCH (20:34)
[2018-11-12 05:09] VITALS: BP 157/85
[2018-11-12 06:50] LABS: GLUCOMETER DEV NAME(LOC) 5S.1; GLUCOSE,POINT OF CARE 332 MG/DL (70-110)
[2018-11-12 06:50] LABS: GLUCOMETER DEV NAME(LOC) 5S.2; GLUCOSE,POINT OF CARE 243 MG/DL (70-110)
[2018-11-12 06:51] LABS: GLUCOMETER DEV NAME(LOC) 5S.2; GLUCOSE,POINT OF CARE 110 MG/DL (70-110)
[2018-11-12 07:49] VITALS: BP 170/89
[2018-11-12] MEDS ORDERED: SOTALOL HCL 80 MG TABLET PO SCH ×2 (08:00→09:00)
[2018-11-12] MEDS: AmLODIPine BESYLATE 10 MG TABLET PO SCH (08:06)
[2018-11-12] MEDS: DOCUSATE SODIUM 100 MG CAPSULE PO SCH (08:44)
[2018-11-12 08:45] LABS: BASOPHILS % (AUTO) 0.9 % (0.0-2.0); EOSINOPHILS % (AUTO) 2.5 % (1.0-6.0); HEMATOCRIT 26.6 % (41-53); HEMOGLOBIN 8.9 g/dL (13.5-17.5); LYMPHOCYTES # (AUTO) 1.2 K/uL (1.0-4.8); LYMPHOCYTES % (AUTO) 28.8 % (22.0-44.0); MEAN CORPUSCULAR HEMOGLOBIN 28.2 pg (26.0-34.0); MEAN CORPUSCULAR HGB CONC 33.4 G/dL (31.0-37.0); MEAN CORPUSCULAR VOLUME 84 fL (80-100); MONOCYTES # (AUTO) 0.5 K/uL (0.1-1.0); MONOCYTES % (AUTO) 10.7 % (2.0-9.0); NEUTROPHILS # (AUTO) 2.4 K/uL (1.8-7.7); NEUTROPHILS % (AUTO) 57.1 % (40.0-70.0); PLATELET COUNT (AUTO) 134 K/uL (150-450); RED BLOOD CELL COUNT(AUTO) 3.16 MIL/uL (4.50-5.90); RED CELL DISTRIBUTION WIDTH 15.2 % (11.5-14.5)
[2018-11-12] MEDS: ASPIRIN 81 MG EC TABLET PO SCH (08:45)
[2018-11-12] MEDS: MYCOPHENOLATE SODIUM 180 MG DR TABLET PO SCH (08:45)
[2018-11-12] MEDS: PredniSONE 5 MG TABLET PO SCH (08:45)
[2018-11-12] MEDS: PANTOPRAZOLE SODIUM 40 MG DR TABLET PO SCH (08:45)
[2018-11-12] MEDS: VITAMIN B COMP/VIT C/FOLIC ACID CAPSULE PO SCH (08:45)
[2018-11-12] MEDS: APIXABAN 2.5 MG TABLET PO SCH (08:45)
[2018-11-12] MEDS: SIMVASTATIN 20 MG TABLET PO SCH (08:46)
[2018-11-12 09:00] LABS: ALBUMIN 1.3 g/dL (3.4-5.0); BILIRUBIN,TOTAL 0.2 mg/dL (0.1-1.0); CALCIUM, TOTAL 7.5 mg/dL (8.8-10.5); CREATININE 3.96 mg/dL (0.60-1.30); MAGNESIUM 2.2 mg/dL (1.80-2.40)
[2018-11-12] MEDS: TACROLIMUS ANHYDROUS 1 MG CAPSULE PO SCH (09:06)
[2018-11-12] MEDS: HEPARIN SODIUM,PORCINE 5,000 UNITS/ML VIAL SQ SCH (09:08)
[2018-11-12] MEDS: INSULIN GLARGINE,HUM.REC.ANLOG 100 UNITS/ML SQ SCH (09:08)
[2018-11-12 11:41] VITALS: BP 156/64
[2018-11-12 12:44] LABS: GLUCOMETER DEV NAME(LOC) 5S.1; GLUCOSE,POINT OF CARE 172 MG/DL (70-110)
[2018-11-12] MEDS: INSULIN LISPRO 100 UNITS/ML SQ PRN (12:46)
[2018-11-12 16:32] VITALS: BP 153/80
[2018-11-13 00:44] LABS: GLUCOMETER DEV NAME(LOC) 5S.1; GLUCOSE,POINT OF CARE 264 MG/DL (70-110)
== END 2018-11-12 17:15 | DRG 208 ==
LOC: EMS 03:22 → ICU 05:21 → 5S 11-08 18:50
PROVIDERS: ADMIT Internal Medicine; ATTEND Internal Medicine
PROC: 5A1945Z Respiratory Ventilation, 24-96 Consecutive Hours (ICD-10-PCS; principal; 2018-11-06)
PROC: 0BH17EZ Insertion of Endotracheal Airway into Trachea, Via Natural or Artificial Opening (ICD-10-PCS; 2018-11-06)
PROC: B54MZZA Ultrasonography of Right Upper Extremity Veins, Guidance (ICD-10-PCS; 2018-11-08)
PROC: 05HY33Z Insertion of Infusion Device into Upper Vein, Percutaneous Approach (ICD-10-PCS; 2018-11-08)
DX: J96.01 Acute respiratory failure with hypoxia (principal); E11.10 Type 2 diabetes mellitus with ketoacidosis without coma; N18.6 End stage renal disease; G93.41 Metabolic encephalopathy; E43 Unspecified severe protein-calorie malnutrition; R65.11 Systemic inflammatory response syndrome (SIRS) of non-infectious origin with acute organ dysfunction; I12.0 Hypertensive chronic kidney disease with stage 5 chronic kidney disease or end stage renal disease; N17.9 Acute kidney failure, unspecified; M48.54XA Collapsed vertebra, not elsewhere classified, thoracic region, initial encounter for fracture; Z99.11 Dependence on respirator [ventilator] status; E11.22 Type 2 diabetes mellitus with diabetic chronic kidney disease; N40.0 Benign prostatic hyperplasia without lower urinary tract symptoms; E11.319 Type 2 diabetes mellitus with unspecified diabetic retinopathy without macular edema; E11.40 Type 2 diabetes mellitus with diabetic neuropathy, unspecified; D69.6 Thrombocytopenia, unspecified; E87.6 Hypokalemia; E11.51 Type 2 diabetes mellitus with diabetic peripheral angiopathy without gangrene; G40.409 Other generalized epilepsy and epileptic syndromes, not intractable, without status epilepticus; I25.10 Atherosclerotic heart disease of native coronary artery without angina pectoris; I48.0 Paroxysmal atrial fibrillation; H54.8 Legal blindness, as defined in USA; Z86.73 Personal history of transient ischemic attack (TIA), and cerebral infarction without residual deficits; Z99.2 Dependence on renal dialysis; Z91.19 Patient's noncompliance with other medical treatment and regimen; Z79.4 Long term (current) use of insulin; Z79.899 Other long term (current) drug therapy; Z68.28 Body mass index [BMI] 28.0-28.9, adult
CPT/HCPCS: 31500; 36569; 36600; 51702; 70450; 70551; 71250; 76770; 80197; 82565; 82570; 82805; 83605; 83735; 84100; 84145; 84300; 84443; 84520; 84540; 87040; 87070; 87081; 87086; 87205; 92523; 93005; 93306; 93880; 93970; 94002; 94003; 95816; 96374; 96375; 97110; 97116; 97162; 97530; 99291; G0378; J0360; J0712; J1160; J1644; J1815; J2060; J2270; J2543; J2704; J3490; J7050; J7060; J7507; J7518